=== PATIENT | male | born 1990 | race American Indian/Alaskan Native ===

== ENCOUNTER 2018-12-03 18:30 | Emergency (ER) | payer OTHER ==
[2018-12-03 18:39] VITALS: BP 118/49
[2018-12-03] MEDS ORDERED: IBUPROFEN PO ONE (19:20)
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
== END 2018-12-03 20:34 | disposition home or self-care (01) ==
LOC: ED 18:30
DX: S86.912A Strain of unspecified muscle(s) and tendon(s) at lower leg level, left leg, initial encounter (principal); S46.912A Strain of unspecified muscle, fascia and tendon at shoulder and upper arm level, left arm, initial encounter; F17.200 Nicotine dependence, unspecified, uncomplicated; V89.2XXA Person injured in unspecified motor-vehicle accident, traffic, initial encounter; Y93.89 Activity, other specified; Y99.8 Other external cause status; Y92.410 Unspecified street and highway as the place of occurrence of the external cause
CPT/HCPCS: 99283